=== PATIENT | female | born 1930 | race African-American/Black ===

== ENCOUNTER 2016-07-24 11:28 | Emergency (ER) | payer MEDICARE, MEDICAID ==
[~2016-07-24] VITALS: Ht 160 cm; Wt 60.0 kg
[~2016-07-24 11:28] MED LIST: ALEN70TA13 PO; AMLO1CAP2 PO; DONE5TAB33 PO; FERR-63 PO; HYDR100T26 PO
[2016-07-24 11:51] LABS: BASOPHILS % 0.8 % (0.0-2.0); EOSINOPHILS % 2.5 % (0.0-5.0); HEMATOCRIT. 27.2 % (36.0-48.0); HEMOGLOBIN. 8.9 g/dL (12.0-16.0); LYMPHOCYTES % 39.2 % (20.0-50.0); MEAN CORPUSCULAR HEMOGLOBIN 28.8 pg (28.0-32.0); MEAN CORPUSCULAR HGB CONC 32.7 g/dL (31.0-37.0); MEAN CORPUSCULAR VOLUME 88.1 fL (81.0-99.0); MEAN PLATELET VOLUME 7.4 fl (7.4-10.4); MONOCYTES % 6.9 % (2.0-8.0); NEUTROPHILS % 50.6 % (40.0-76.0); PLATELET 254 x1000/uL (130-400); RED BLOOD CELL COUNT 3.09 mill/uL (4.2-5.4); RED CELL DISTRIBUTION WIDTH 18.3 % (11.6-14.6); WHITE BLOOD COUNT 4.1 x1000/uL (4.5-11.0)
[2016-07-24 11:59] LABS: INR 1.1; PROTHROMBIN TIME 10.9 sec
[2016-07-24 12:03] LABS: CALCIUM 9.2 mg/dL (8.5-10.1)
[2016-07-24] MEDS ORDERED: HYDROCODONE/ACETAMINOPHEN 5/325MG TABLET PO ONE (13:45)
[2016-07-24 14:06] VITALS: BP 156/98
[2016-07-24] MEDS ORDERED: OXYCODONE HCL/ACETAMINOPHEN 5/325MG TABLET ONE (14:08)
== END 2016-07-24 14:53 | disposition home or self-care (01) ==
LOC: ER 11:41
DX: R51 Headache (principal); D64.9 Anemia, unspecified; I10 Essential (primary) hypertension; Z88.0 Allergy status to penicillin; Z98.890 Other specified postprocedural states
CPT/HCPCS: 36415; 70450; 80048; 85025; 85610; 99285

== ENCOUNTER 2016-09-30 07:46 | Observation (INO) | payer MEDICARE, MEDICAID ==
[~2016-09-30] VITALS: Ht 160 cm; Wt 60.8 kg
[~2016-09-30 07:46] MED LIST changes: -ALEN70TA13 PO; +ALEN70TA46 PO
[2016-09-30] MEDS ORDERED: DONE10TA11 PO (07:52)
[2016-09-30] MEDS ORDERED: HYDR100T31 (08:17)
[2016-09-30] MEDS ORDERED: FURO40TA5 (08:17)
[2016-09-30] MEDS ORDERED: POTA20TA82 (08:17)
[2016-09-30] MEDS ORDERED: ASPIRIN 81MG TABLET PO STA (09:20)
[2016-09-30] MEDS ORDERED: NITROGLYCERIN OINT 1GM/INCH UDPKT TD STA (09:20)
[2016-09-30] MEDS ORDERED: MORPHINE SULFATE 4 MG/ML CPJ (NOT FOR IM USE) IV STA (09:20)
[2016-09-30 10:05] LABS: BASOPHILS % 0.7 % (0.0-2.0); EOSINOPHILS % 2.4 % (0.0-5.0); HEMATOCRIT. 22.7 % (36.0-48.0); HEMOGLOBIN. 7.7 g/dL (12.0-16.0); LYMPHOCYTES % 20.9 % (20.0-50.0); MEAN CORPUSCULAR VOLUME 85.4 fL (81.0-99.0); MEAN PLATELET VOLUME 7.4 fl (7.4-10.4); MONOCYTES % 8.7 % (2.0-8.0); NEUTROPHILS % 67.3 % (40.0-76.0); PLATELET 219 x1000/uL (130-400); RED BLOOD CELL COUNT 2.65 mill/uL (4.2-5.4); RED CELL DISTRIBUTION WIDTH 17.5 % (11.6-14.6)
[2016-09-30 10:21] LABS: CARBON DIOXIDE 29 mEq/L (21-32); CHLORIDE 102 mEq/L (98-107); TROPONIN I < 0.02 ng/mL (0.00-0.04)
[2016-09-30 17:27] VITALS: BP 153/73
[2016-09-30] MEDS ORDERED: CENTRUM SILVER (18:37)
[2016-09-30] MEDS ORDERED: DOCUSATE SODIUM 100MG CAPSULE PO PRN (19:00)
[2016-09-30] MEDS ORDERED: ONDANSETRON HCL 4MG/2ML VIAL IV PRN (19:00)
[2016-09-30 19:20] LABS: TOTAL IRON BINDING CAPACITY 148 ug/dL (250-450)
[2016-09-30 19:55] LABS: VITAMIN B12 SERUM 1127 pg/mL (211-911)
[2016-09-30 20:00] VITALS: BP 132/71
[2016-09-30 20:17] LABS: EOSINOPHILS % 4.3 % (0.0-5.0); HEMATOCRIT. 21.8 % (36.0-48.0); HEMOGLOBIN. 7.2 g/dL (12.0-16.0); LYMPHOCYTES % 29.7 % (20.0-50.0); MEAN CORPUSCULAR HEMOGLOBIN 28.6 pg (28.0-32.0); MEAN PLATELET VOLUME 7.6 fl (7.4-10.4); MONOCYTES % 9.3 % (2.0-8.0); NEUTROPHILS % 55.7 % (40.0-76.0); PLATELET 224 x1000/uL (130-400); RED BLOOD CELL COUNT 2.53 mill/uL (4.2-5.4); RED CELL DISTRIBUTION WIDTH 17.8 % (11.6-14.6)
[2016-09-30] MEDS: PANTOPRAZOLE 40MG DR TABLET PO SCH (20:58)
[2016-09-30] MEDS: HYDRALAZINE HCL 50MG TABLET PO SCH (20:58)
[2016-09-30 23:20] LABS: CREATINE KINASE 52 IU/L (26-192); CREATINE KINASE MB FRACTION 1.4 ng/mL (0.5-3.6); TROPONIN I < 0.02 ng/mL (0.00-0.04)
[2016-09-30 23:55] VITALS: BP 144/48
[2016-10-01] VITALS (12 sets, daily range): BP systolic 140–189; BP diastolic 47–91
[2016-10-01] MEDS: HYDRALAZINE HCL 50MG TABLET PO SCH ×2 (06:00→13:55)
[2016-10-01] MEDS: PANTOPRAZOLE 40MG DR TABLET PO SCH (06:01)
[2016-10-01] MEDS ORDERED: AMLODIPINE 10MG TABLET PO SCH (09:00)
[2016-10-01] MEDS ORDERED: ASPIRIN 81MG EC TABLET PO SCH (09:00)
[2016-10-01] MEDS ORDERED: LOSARTAN POTASSIUM 100 MG TABLET PO SCH (09:00)
[2016-10-01] MEDS: ACETAMINOPHEN 325MG TABLET PO PRN ×2 (09:23→14:54)
[2016-10-01 10:02] LABS: BASOPHILS % 0.7 % (0.0-2.0); EOSINOPHILS % 4.2 % (0.0-5.0); HEMATOCRIT. 32.7 % (36.0-48.0); LYMPHOCYTES % 21.1 % (20.0-50.0); MEAN CORPUSCULAR HEMOGLOBIN 28.8 pg (28.0-32.0); MEAN CORPUSCULAR VOLUME 88.2 fL (81.0-99.0); MEAN PLATELET VOLUME 8.3 fl (7.4-10.4); MONOCYTES % 8.9 % (2.0-8.0); NEUTROPHILS % 65.1 % (40.0-76.0); PLATELET 214 x1000/uL (130-400); RED CELL DISTRIBUTION WIDTH 16.4 % (11.6-14.6)
[2016-10-01 10:14] LABS: HEMOGLOBIN. 10.6 g/dL (12.0-16.0)
[2016-10-01 10:27] LABS: CARBON DIOXIDE 26 mEq/L (21-32); CHLORIDE 102 mEq/L (98-107); CREATINE KINASE 57 IU/L (26-192); CREATINE KINASE MB FRACTION 1.2 ng/mL (0.5-3.6); HDL CHOLESTEROL 52 mg/dL (40-59); LDL CHOLESTEROL 61 mg/dL (5-100); TROPONIN I < 0.02 ng/mL (0.00-0.04)
[2016-10-01] MEDS ORDERED: DIPHENHYDRAMINE 25MG CAPSULE PO NR (15:45)
== END 2016-10-01 16:20 | disposition home or self-care (01) ==
LOC: ER 07:58 → 5WST 14:31 → INTOOBSV 14:31 → ENRESERV 15:33
PROVIDERS: ADMIT Internal Medicine; ATTEND Internal Medicine
DX: D64.9 Anemia, unspecified (principal); I10 Essential (primary) hypertension; F03.90 Unspecified dementia, unspecified severity, without behavioral disturbance, psychotic disturbance, mood disturbance, and anxiety; R53.1 Weakness; Z79.899 Other long term (current) drug therapy; Z87.891 Personal history of nicotine dependence
CPT/HCPCS: 36415; 71010; 78582; 80053; 80061; 82550; 82553; 82607; 83540; 83550; 83690; 84439; 84443; 84484; 85025; 85379; 86850; 86900; 86920; 93005; 96374; 99285; A9558; G0378; J2270; J7050; P9016; Q0163

== ENCOUNTER 2017-09-16 16:23 | Emergency (ER) | payer MEDICARE, OTHER ==
[~2017-09-16] VITALS: Ht 157.5 cm; Wt 56.0 kg
[~2017-09-16 16:23] MED LIST changes: +CENTRUM SILVER; +DONE10TA11 PO; +FURO40TA5; -HYDR100T26 PO; +HYDR100T31; +POTA20TA82
[2017-09-16 17:16] VITALS: BP 188/58
[2017-09-16 19:25] LABS: BASOPHILS % 0.6 % (0.0-2.0); EOSINOPHILS % 2.2 % (0.0-5.0); HEMATOCRIT. 28.8 % (36.0-48.0); HEMOGLOBIN. 9.4 g/dL (12.0-16.0); MEAN CORPUSCULAR HEMOGLOBIN 28.8 pg (28.0-32.0); MEAN CORPUSCULAR VOLUME 88.3 fL (81.0-99.0); MEAN PLATELET VOLUME 8.5 fl (7.4-10.4); MONOCYTES % 8.3 % (2.0-8.0); NEUTROPHILS % 52.9 % (40.0-76.0); PLATELET 227 x1000/uL (130-400); RED BLOOD CELL COUNT 3.26 mill/uL (4.2-5.4)
[2017-09-16 19:27] LABS: CHLORIDE 105 mEq/L (98-107)
== END 2017-09-16 21:30 | disposition home or self-care (01) ==
LOC: ER 16:23
DX: Z13.0 Encounter for screening for diseases of the blood and blood-forming organs and certain disorders involving the immune mechanism (principal); D64.9 Anemia, unspecified; I10 Essential (primary) hypertension; Z88.0 Allergy status to penicillin
CPT/HCPCS: 36415; 80053; 85025; 86850; 86900; 99284

== ENCOUNTER 2018-07-01 17:31 | Inpatient (IN) | payer MEDICARE, OTHER ==
[~2018-07-01] VITALS: Ht 157.5 cm; Wt 56.7 kg
[2018-07-01] MEDS ORDERED: MORPHINE SULFATE 4 MG/ML CPJ (NOT FOR IM USE) IV STA (18:21)
[2018-07-01] MEDS ORDERED: ONDANSETRON HCL 4MG/2ML INJ IV STA (18:21)
[2018-07-01 18:42] LABS: BASOPHILS % 1.1 % (0.0-2.0); HEMATOCRIT. 28.4 % (36.0-48.0); HEMOGLOBIN. 9.6 g/dL (12.0-16.0); LYMPHOCYTES % 32.4 % (20.0-50.0); MEAN CORPUSCULAR HEMOGLOBIN 30.1 pg (28.0-32.0); MEAN CORPUSCULAR VOLUME 89.6 fL (81.0-99.0); MEAN PLATELET VOLUME 8.9 fl (7.4-10.4); MONOCYTES % 8.9 % (2.0-8.0); NEUTROPHILS % 54.6 % (40.0-76.0); PLATELET 197 x1000/uL (130-400); RED BLOOD CELL COUNT 3.18 mill/uL (4.2-5.4)
[2018-07-01 18:46] LABS: CHLORIDE 110 mEq/L (98-107)
[2018-07-01 19:14] LABS: PARTIAL THROMBOPLASTIN TIME 22.4 sec (23.4-31.0); PROTHROMBIN TIME 10.7 sec (9.6-11.0)
[2018-07-01] MEDS ORDERED: CLONIDINE 0.1MG TABLET PO ONE (19:15)
[2018-07-02] VITALS (7 sets, daily range): BP systolic 123–160; BP diastolic 36–51
[2018-07-02 00:08] LABS: CLARITY URINE CLEAR (CLEAR); COLOR URINE YELLOW (YELLOW); KETONES URINE NEGATIVE (NEGATIVE); LEUKOCYTE ESTERASE URINE TRACE (NEGATIVE); NITRITE URINE NEGATIVE (NEGATIVE); OCCULT BLOOD URINE NEGATIVE (NEGATIVE); PROTEIN URINE 1+ (NEGATIVE); SPECIFIC GRAVITY URINE 1.017 (1.005-1.030); UROBILINOGEN URINE 0.2 E.U./dL (0.2-1.0)
[2018-07-02] MEDS ORDERED: PROC10TA17 PO (02:55)
[2018-07-02] MEDS ORDERED: HYDR-4133 PO (02:55)
[2018-07-02] MEDS ORDERED: ACETAMINOPHEN 325MG TABLET PO PRN (05:00)
[2018-07-02] MEDS ORDERED: NON FORMULARY PATIENT HOME MED XX SCH (05:15)
[2018-07-02] MEDS: HYDRALAZINE HCL 50MG TABLET PO SCH ×2 (06:42→12:56)
[2018-07-02] MEDS: ASPIRIN 81MG TABLET PO SCH (08:08)
[2018-07-02] MEDS ORDERED: BENAZEPRIL 10MG TABLET PO SCH (09:00)
[2018-07-02] MEDS ORDERED: AMLODIPINE 10MG TABLET PO SCH (09:00)
[2018-07-02] MEDS ORDERED: ENOXAPARIN 40MG/0.4ML SYR SUBCUT SCH (09:00)
[2018-07-02] MEDS ORDERED: ENOXAPARIN 30MG/0.3ML SYR SUBCUT SCH (09:00)
[2018-07-02 09:50] LABS: BASOPHILS % 0.8 % (0.0-2.0); EOSINOPHILS % 2.9 % (0.0-5.0); HEMATOCRIT. 24.6 % (36.0-48.0); HEMOGLOBIN. 8.2 g/dL (12.0-16.0); LYMPHOCYTES % 29.7 % (20.0-50.0); MEAN CORPUSCULAR HEMOGLOBIN 30.3 pg (28.0-32.0); MEAN CORPUSCULAR VOLUME 90.7 fL (81.0-99.0); MEAN PLATELET VOLUME 8.9 fl (7.4-10.4); MONOCYTES % 8.3 % (2.0-8.0); NEUTROPHILS % 58.3 % (40.0-76.0); PLATELET 176 x1000/uL (130-400); RED BLOOD CELL COUNT 2.71 mill/uL (4.2-5.4); RED CELL DISTRIBUTION WIDTH 16.8 % (11.6-14.6)
[2018-07-02 10:13] LABS: CHLORIDE 107 mEq/L (98-107)
[2018-07-02 10:25] LABS: LDL CHOLESTEROL 40 mg/dL (5-100)
[2018-07-02 10:27] LABS: CREATINE KINASE 89 IU/L (26-192); HDL CHOLESTEROL 59 mg/dL (40-59)
[2018-07-02 10:31] LABS: CREATINE KINASE MB FRACTION 1.4 ng/mL (0.5-3.6)
[2018-07-02] MEDS: HYDRALAZINE HCL 25MG TABLET PO SCH (17:18)
[2018-07-02] MEDS ORDERED: ALEN10TA6 PO (18:19)
[2018-07-02] MEDS ORDERED: POTA-79 PO (18:19)
[2018-07-02] MEDS ORDERED: FERR325T6 PO (18:19)
[2018-07-02] MEDS ORDERED: ATORVASTATIN CALCIUM 40MG TABLET PO SCH (21:00)
[2018-07-02] MEDS ORDERED: DONEPEZIL HCL 10MG TABLET PO SCH (21:00)
[2018-07-02 21:06] LABS: CREATINE KINASE 103 IU/L (26-192)
[2018-07-02 21:07] LABS: CREATINE KINASE MB FRACTION < 1.0 ng/mL (0.5-3.6)
[2018-07-03] VITALS: BP 138/44
[2018-07-03 04:00] VITALS: BP 140/46
[2018-07-03 06:44] LABS: HEMATOCRIT 25.5 % (36.0-48.0); HEMOGLOBIN 8.3 g/dL (12.0-16.0); MEAN CORPUSCULAR HEMOGLOBIN 29.8 pg (28.0-32.0); MEAN CORPUSCULAR VOLUME 91.3 fL (81.0-99.0); PLATELET 208 x1000/uL (130-400); RED BLOOD CELL COUNT 2.79 mill/uL (4.2-5.4); RED CELL DISTRIBUTION WIDTH 16.4 % (11.6-14.6)
[2018-07-03 08:00] VITALS: BP 144/43
[2018-07-03] MEDS ORDERED: ENOXAPARIN 30MG/0.3ML SYR SUBCUT SCH (09:00)
[2018-07-03] MEDS: HYDRALAZINE HCL 25MG TABLET PO SCH ×2 (09:46)
[2018-07-03] MEDS: ASPIRIN 81MG TABLET PO SCH (09:52)
[2018-07-03] MEDS ORDERED: HYDRALAZINE HCL 10MG TABLET PO SCH (10:15)
[2018-07-03] MEDS ORDERED: AMLODIPINE 5MG TABLET PO SCH ×2 (10:45→21:00)
[2018-07-03 12:00] VITALS: BP 162/52
[2018-07-03] MEDS ORDERED: HYDRALAZINE 20MG/ML VIAL IV ONE (14:00)
[2018-07-03 14:35] LABS: BG BASE EXCESS -1.7 mmol/L (-2.0-2.0); BG CARBOXYHEMOGLOBIN 1.9 % (0.5-1.5); BG DEOXYHEMOGLOBIN 9.4 % (0.0-5.0); BG FRACTION INSPIRED OXYGEN 21; BG HCO3 ACT 22.4 mmol/L (22.0-26.0); BG METHEMOGLOBIN 0.3 % (0.0-1.5); BG OXYGEN SATURATION 90.4 % (92.0-98.5); BG OXYHEMOGLOBIN 88.4 % (94.0-97.0); BG PCO2 35.3 mmHg (35.0-45.0); BG PH 7.421 (7.350-7.450); BG PO2 58.4 mmHg (75.0-100.0); BG SAMPLE SITE RIGHT BRACHIAL; BG TOTAL HEMOGLOBIN 9.3 g/dL (12.0-18.0); BG VENT MODE ROOM AIR
[2018-07-03 15:16] VITALS: BP_SYST 162
[2018-07-03] MEDS ORDERED: HYDRALAZINE HCL 25MG TABLET PO SCH (18:00)
== END 2018-07-03 16:47 | disposition home or self-care (01) | DRG 293 ==
LOC: ER 17:31 → 5WST 19:20 → EDBEDREQ 19:30 → ENRESERV 22:20
PROVIDERS: ADMIT Internal Medicine; ATTEND Internal Medicine
DX: I11.0 Hypertensive heart disease with heart failure (principal); R07.89 Other chest pain; I50.33 Acute on chronic diastolic (congestive) heart failure; E11.9 Type 2 diabetes mellitus without complications; F03.90 Unspecified dementia, unspecified severity, without behavioral disturbance, psychotic disturbance, mood disturbance, and anxiety; I27.20 Pulmonary hypertension, unspecified; D64.9 Anemia, unspecified; M19.90 Unspecified osteoarthritis, unspecified site; R00.1 Bradycardia, unspecified; R91.8 Other nonspecific abnormal finding of lung field; Z88.0 Allergy status to penicillin; Z79.899 Other long term (current) drug therapy
CPT/HCPCS: 36415; 36600; 71045; 71250; 78582; 80048; 80061; 82375; 82550; 82553; 82805; 82962; 83880; 84484; 85027; 93005; 93306; 93970; 99285; A9558; J0360; J1650; J2270; J2405